=== PATIENT | male | born 1965 | race African-American/Black ===

== ENCOUNTER 2019-08-29 22:27 | Emergency (ER) | payer BC ==
[~2019-08-29] VITALS: Ht 177.8 cm; Wt 136.4 kg
--- NOTE | 2019-08-29 22:54 | PHYS DOC ---
Adult General Chief Complaint Chief Complaint: NOSEBLEED HPI HPI 54-year-old male presents to the emergency Department complaints of nosebleed. Patient states is been ongoing off and on for the last week, today lasted longer than usual. He takes aspirin daily. Patient has underlying history of hypertensi on. It is elevated 194/112. Patient denies any other blood thinning medications. Denies any trauma. Nothing makes his symptoms worse, nothing makes his symptoms better. Patient denies any pain. Review of Systems Review of Systems Constitutional: Denies fever or chills [] Eyes: Denies change in visual acuity, redness, or eye pain [] HENT: nosebleed left nares Respiratory: Denies cough or shortness of breath [] GI: Denies abdominal pain, nausea, vomiting, bloody stools or diarrhea [] Musculoskeletal: Denies back pain or joint pain [] Neurologic: Denies headache, focal weakness or sensory changes [] All other systems were reviewed and found to be within normal limits, except as documented in this note. Current Medications Current Medications Current Medications Medications (Trade) Dose Ordered Sig/Jodi Start Time Stop Time Status Last Admin Dose Admin Clonidine HCl (Catapres) 0.2 mg 1X ONCE 08/29/19 23:00 08/29/19 23:01 DC Oxymetazoline HCl (Afrin) 2 spray 1X ONCE 08/29/19 23:00 08/29/19 23:01 DC 08/29/19 23:28 2 SPRAY Allergies Allergies Allergies Coded Allergies Type Severity Reaction Last Updated Verified Unable to Assess 08/29/19 No Physical Exam Physical Exam Constitutional: Well developed, well nourished, no acute distress, non-toxic appearance. [] HENT: Normocephalic, atraumatic, bilateral external ears normal, oropharynx moist, no oral exudates, nose normal, no evidence of epistaxis on exam [] Cardiovascular:Heart rate regular rhythm, no murmur [] Lungs & Thorax: Bilateral breath sounds clear to auscultation [] Abdomen: Bowel sounds normal, soft, no tenderness, no masses, no pulsatile masses. [] Skin: Warm, dry, no erythema, no rash. [] Extremities: No tenderness, no edema. [] Neurologic: Alert and oriented X 3, no focal deficits noted. [] Psychologic: Affect normal, judgement normal, mood normal. [] Current Patient Data Vital Signs Vital Signs Date Time Temp Pulse Resp B/P (MAP) Pulse Ox O2 Delivery O2 Flow Rate FiO2 08/29/19 23:29 78 20 98 08/29/19 23:21 159/99 08/29/19 22:45 98.2 Room Air 98.2 EKG EKG [] Radiology/Procedures Radiology/Procedures [] Course & Med Decision Making Course & Med Decision Making Pertinent Labs and Imaging studies reviewed. (See chart for details) []54-year-old male presents to the emergency Department complaints of nosebleed. Patient states is been ongoing off and on for the last week, today lasted longer than usual. He takes aspirin daily. Patient has underlying history of hypertension. It is elevated 194/112. Patient denies any other blood thinning medications. Denies any trauma. Nothing makes his symptoms worse, nothing makes his symptoms better. Patient denies any pain. Afrin nasal spray bilateral nares No evidence of bleeding on speculum exam Discussed return precautions Recommend dc home and follow up as outpatient Dragon Disclaimer Dragon Disclaimer This electronic medical record was generated, in whole or in part, using a voice recognition dictation system. Departure Departure Impression: Primary Impression: Epistaxis Disposition: HOME, SELF-CARE Condition: IMPROVED Referrals: EVAN LEVY DO (PCP) Patient Instructions: Nosebleed, [id number] Additional Instructions: Recommend follow up with PCP 3 - 5 days Return to the ER with worsening nosebleed Ok to use afrin as needed however would not use more than 2 or 3 days in a row 2/2 Hypertension Continue blood pressure medications as prescribed REVA COHEN MD Aug 29, 2019 22:54
[2019-08-29] MEDS ORDERED: OXYMETAZOLINE 0.05% NASAL SPRAY 30ML BOTTLE. NS ONE (23:00)
[2019-08-29] MEDS ORDERED: cloNIDine HCL 0.1 MG TABLET PO ONE (23:00)
[2019-08-29 23:59] VITALS: BP 146/98
== END 2019-08-30 | disposition home or self-care (01) ==
LOC: ER 22:27
DX: R04.0 Epistaxis (principal); I10 Essential (primary) hypertension; Z79.82 Long term (current) use of aspirin
CPT/HCPCS: 99283